=== PATIENT | female | born 1980 | race Caucasian/White ===

== ENCOUNTER 2018-01-26 00:49 | Inpatient (IN) | payer BC ==
[2018-01-26] MEDS ORDERED: Sodium Chloride 0.9% 10 ML Syringe FLUSH PRN (01:57)
[2018-01-26] MEDS ORDERED: Tranexamic Acid 1,000 MG in Sodium Chloride 0.9% 100 ML IV PRN (01:57)
[2018-01-26] MEDS ORDERED: Carboprost Tromethamine 250 MCG/1 ML Amp IM PRN (01:57)
[2018-01-26] MEDS ORDERED: Nalbuphine 10 MG/1 ML Vial IVPUSH PRN ×2 (01:57→14:53)
[2018-01-26] MEDS ORDERED: Misoprostol 200 MCG Tab PO PRN (01:57)
[2018-01-26] MEDS ORDERED: Sodium Chloride 0.9% 2.5 ML Syringe FLUSH PRN (01:57)
[2018-01-26] MEDS ORDERED: Water For Irrigation,Sterile 1,000 ML Container IRR PRN (01:57)
[2018-01-26] MEDS ORDERED: Butorphanol 1 MG/ML SDV IVPUSH PRN (01:57)
[2018-01-26] MEDS ORDERED: Lidocaine 1% 50 ML MDV INJECT PRN (01:57)
[2018-01-26] MEDS ORDERED: Methylergonovine 0.2 MG/1 ML Amp IM PRN (01:57)
[2018-01-26] MEDS ORDERED: Oxytocin/0.9 % Sodium Chloride 30 UNIT/500 ML BAG IV SCH ×2 (02:00→09:30)
[2018-01-26] MEDS ORDERED: Ampicillin 2 GM in Sodium Chloride 0.9% 100 ML IV ONE (02:00)
--- NOTE | 2018-01-26 02:55 | PCM.LDHP ---
L&D History of Present Illness - General Date of Service: 01/26/18 Admit Problem/Dx: Patient Status Order with Admit Dx/Problem 01/26/18 01:04 Patient Status [ADT] Routine 01/26/18 01:24 Patient Status [ADT] Routine Admission Diagnosis/Problem Admission Diagnosis/Problem - planned Source of Information: Patient History Limitations: Reports: No Limitations - History of Present Illness Improves with: Reports: None Worsens with: Reports: None Associated Symptoms: Reports: N - Related Data Allergies/Adverse Reactions: Allergies Allergy/AdvReac Type Severity Reaction Status Date / Time No Known Allergies Allergy Verified 09/08/15 13:32 H&P Review of Systems - Review of Systems: Review Of Systems: See Below General: Reports: No Symptoms HEENT: Reports: No Symptoms Pulmonary: Reports: No Symptoms Cardiovascular: Reports: No Symptoms Gastrointestinal: Reports: No Symptoms Genitourinary: Reports: No Symptoms Musculoskeletal: Reports: No Symptoms Skin: Reports: No Symptoms Psychiatric: Reports: No Symptoms Neurological: Reports: No Symptoms Hematologic/Lymphatic: Reports: No Symptoms Immunologic: Reports: No Symptoms L&D Exam - Exam Exam: See Below - OB Specific Fundal Height In cm: 37 Contraction Intensity: Moderate to Strong Movement: Active Heart Tones: Present Heart Rate (FHR) Variability: Absent; Amplitude Undetectable Presentation: Vertex - Deng Score Degn Score Cervix Position: Anterior Deng Score Consistency: Soft Deng Score Effacement: >80% Deng Score Dilation: > 5 cm Deng Score Infant's Station: -1 ,0 Deng Score Total: 12 - Patient Data Lab Results Last 24 hrs: Laboratory Results - last 24 hr 01/26/18 Range/Units 02:03 WBC 17.80 H (4.0-11.0) K/uL RBC 4.07 L (4.30-5.90) M/uL Hgb 12.5 (12.0-16.0) g/dL Hct 37.0 (36.0-46.0) % MCV 90.9 (80.0-98.0) fL MCH 30.7 (27.0-32.0) pg MCHC 33.8 (31.0-37.0) g/dL RDW Std Deviation 47.9 (28.0-62.0) fl RDW Coeff of Chris 15 (11.0-15.0) % Plt Count 245 (150-400) K/uL MPV 12.60 H (7.40-12.00) fL Nucleated RBC % 0.0 /100WBC Nucleated RBCs # 0 K/uL Result Diagrams: 01/26/18 02:03 Problem List Initiated/Reviewed/Updated: Yes Orders Last 24hrs: Active Orders 24 hr Category Date Time Status Patient Status [ADT] Routine ADT 01/26/18 01:24 Active Heart Tones [RC] CONTINUOUS Care 01/26/18 01:57 Active Non Stress Test [RC] PER UNIT ROUTINE Care 01/26/18 01:04 Active Non Stress Test [RC] PER UNIT ROUTINE Care 01/26/18 01:57 Active May Shower [RC] ASDIRECTED Care 01/26/18 01:57 Active Notify Provider [RC] PRN Care 01/26/18 01:57 Active Up ad Diamond [RC] ASDIRECTED Care 01/26/18 01:04 Active Up ad Diamond [RC] ASDIRECTED Care 01/26/18 01:57 Active Vaginal Exam [RC] Click to Edit Care 01/26/18 01:04 Active Vaginal Exam [RC] PRN Care 01/26/18 01:57 Active Vital Signs [RC] PER UNIT ROUTINE Care 01/26/18 01:04 Active Vital Signs [RC] PER UNIT ROUTINE Care 01/26/18 01:57 Active OB Ltd 1 or More Fetus [US] Stat Exams 01/26/18 01:56 Taken TYPE AND SCREEN [BBK] Routine Lab 01/26/18 02:03 Received Ampicillin 1 gm Med 01/26/18 06:00 Active Sodium Chloride 0.9% [Normal Saline] 50 ml IV Q4H Butorphanol [Stadol] Med 01/26/18 01:57 Active 1 mg IVPUSH Q1H PRN Carboprost Tromethamine [Hemabate DS] Med 01/26/18 01:57 Active 250 mcg IM ASDIRECTED PRN Lactated Ringers [Ringers, Lactated] 1,000 ml Med 01/26/18 02:00 Active IV ASDIRECTED Lidocaine 1% [Xylocaine 1%] Med 01/26/18 01:57 Active 50 ml INJECT .ONCE PRN Methylergonovine [Methergine] Med 01/26/18 01:57 Active 0.2 mg IM ASDIRECTED PRN Misoprostol [Cytotec] Med 01/26/18 01:57 Active 200 mcg PO .ONCE PRN Nalbuphine [Nubain] Med 01/26/18 01:57 Active 10 mg IVPUSH Q1H PRN Oxytocin/0.9 % Sodium Chloride [Oxytocin 30 Unit/500 ML Med 01/26/18 02:00 Active -NS] 30 unit in 500 ml IV TITRATE Sodium Chloride 0.9% [Saline Flush] Med 01/26/18 01:57 Active 10 ml FLUSH ASDIRECTED PRN Sodium Chloride 0.9% [Saline Flush] Med 01/26/18 01:57 Active 2.5 ml FLUSH ASDIRECTED PRN Tranexamic Acid [Cyklokapron] 1,000 mg Med 01/26/18 01:57 Active Sodium Chloride 0.9% [Normal Saline] 100 ml IV ONETIME Water For Irrigation,Sterile [Sterile Water for Med 01/26/18 01:57 Active Irrigation] 1,000 ml IRR ASDIRECTED PRN Scalp Electrode [WOMSER] Per Unit Routine Oth 01/26/18 01:57 Ordered Peripheral IV Insertion Adult [OM.PC] Routine Oth 01/26/18 01:57 Ordered Resuscitation Status Routine Resus Stat 01/26/18 01:04 Ordered Medication Orders Butorphanol Tartrate (Stadol) 1 mg IVPUSH Q1H PRN PRN Reason: Pain Carboprost Tromethamine (Hemabate Ds) 250 mcg IM ASDIRECTED PRN PRN Reason: Post Hemorrhage Tranexamic Acid 1,000 mg/ (Sodium Chloride) 110 mls @ 660 mls/hr IV ONETIME PRN PRN Reason: Bleeding Lactated Ringer's (Ringers, Lactated) 1,000 mls @ 150 mls/hr IV ASDIRECTED SAUL Oxytocin/Sodium Chloride (Oxytocin 30 Unit/500 Ml-Ns) 30 unit in 500 mls @ 999 mls/hr IV TITRATE SAUL Ampicillin Sodium 1 gm/ Sodium (Chloride) 50 mls @ 100 mls/hr IV Q4H SAUL Lidocaine HCl (Xylocaine 1%) 50 ml INJECT .ONCE PRN PRN Reason: Laceration repair Methylergonovine Maleate (Methergine) 0.2 mg IM ASDIRECTED PRN PRN Reason: Post Hemorrhage Misoprostol (Cytotec) 200 mcg PO .ONCE PRN PRN Reason: Post Hemorrhage Nalbuphine HCl (Nubain) 10 mg IVPUSH Q1H PRN PRN Reason: Pain (severe 7-10) Sodium Chloride (Saline Flush) 10 ml FLUSH ASDIRECTED PRN PRN Reason: Keep Vein Open Sodium Chloride (Saline Flush) 2.5 ml FLUSH ASDIRECTED PRN PRN Reason: Keep Vein Open Sterile Water (Sterile Water For Irrigation) 1,000 ml IRR ASDIRECTED PRN PRN Reason: delivery Assessment/Plan Comment:: 37 year old P0000 have no care in this fallowed by " display designer" been in Labor for 36 hour Srom about 22 hours CX. 7/v/-2 FAR is category 1 but she have tachycardia. Plan to admit tothe L&D start on antibiotic, Epidural may need to start on Pitocin.
[2018-01-26] MEDS ORDERED: fentaNYL 100 MCG/2 ML SDV ONE (02:56)
[2018-01-26] MEDS: Lactated Ringers 1,000 ML IV SCH ×3 (02:57→06:50)
[2018-01-26] MEDS ORDERED: Ropivacaine 0.2% 2 MG/ML 20 ML SDV ONE (02:57)
--- NOTE | 2018-01-26 03:11 | PCM.PREANE ---
Preanesthetic Assessment - Procedure Proposed Procedure: labor epidural - Anesthesia/Transfusion/Family Hx Anesthesia History: Prior Anesthesia Without Reaction (wisdom teeth, laparoscopy for endometriosis) Family History of Anesthesia Reaction: No Transfusion History: No Prior Transfusion(s) - Review of Systems General: No Symptoms Pulmonary: No Symptoms Cardiovascular: No Symptoms Gastrointestinal: No Symptoms Neurological: No Symptoms Other: Reports: None - Physical Assessment NPO Status Date: 01/26/18 NPO Status Time: 03:10 (cl. liq) ASA Class: 2 Mental Status: Alert & Oriented x3 Airway Class: Mallampati = 1 Dentition: Reports: Normal Dentition Thyro-Mental Finger Breadths: 3 Mouth Opening Finger Breadths: 3 ROM/Head Extension: Full Lungs: Clear to Auscultation, Normal Respiratory Effort Cardiovascular: Regular Rate, Regular Rhythm - Lab Values: Laboratory Last Values WBC 17.80 K/uL (4.0-11.0) H 01/26/18 02:03 RBC 4.07 M/uL (4.30-5.90) L 01/26/18 02:03 Hgb 12.5 g/dL (12.0-16.0) 01/26/18 02:03 Hct 37.0 % (36.0-46.0) 01/26/18 02:03 MCV 90.9 fL (80.0-98.0) 01/26/18 02:03 MCH 30.7 pg (27.0-32.0) 01/26/18 02:03 MCHC 33.8 g/dL (31.0-37.0) 01/26/18 02:03 RDW Std Deviation 47.9 fl (28.0-62.0) 01/26/18 02:03 RDW Coeff of Chris 15 % (11.0-15.0) 01/26/18 02:03 Plt Count 245 K/uL (150-400) 01/26/18 02:03 MPV 12.60 fL (7.40-12.00) H 01/26/18 02:03 Nucleated RBC % 0.0 /100WBC 01/26/18 02:03 Nucleated RBCs # 0 K/uL 01/26/18 02:03 - Allergies Allergies/Adverse Reactions: Allergies Allergy/AdvReac Type Severity Reaction Status Date / Time No Known Allergies Allergy Verified 09/08/15 13:32 - Blood Blood Available: Yes Product(s) Available: PRBC - Acknowledgements Anesthesia Type Planned: Epidural Pt an Appropriate Candidate for the Planned Anesthesia: Yes Alternatives and Risks of Anesthesia Discussed w Pt/Guardian: Yes Pt/Guardian Understands and Agrees with Anesthesia Plan: Yes PreAnesthesia Questionnaire - CURRENT (IN HOUSE) MEDS Current Meds: Current Medications Butorphanol Tartrate (Stadol) 1 mg IVPUSH Q1H PRN PRN Reason: Pain Carboprost Tromethamine (Hemabate Ds) 250 mcg IM ASDIRECTED PRN PRN Reason: Post Hemorrhage Tranexamic Acid 1,000 mg/ (Sodium Chloride) 110 mls @ 660 mls/hr IV ONETIME PRN PRN Reason: Bleeding Lactated Ringer's (Ringers, Lactated) 1,000 mls @ 150 mls/hr IV ASDIRECTED SAUL Last Admin: 01/26/18 02:57 Dose: 150 mls/hr Oxytocin/Sodium Chloride (Oxytocin 30 Unit/500 Ml-Ns) 30 unit in 500 mls @ 999 mls/hr IV TITRATE SAUL Ampicillin Sodium 1 gm/ Sodium (Chloride) 50 mls @ 100 mls/hr IV Q4H SAUL Lidocaine HCl (Xylocaine 1%) 50 ml INJECT .ONCE PRN PRN Reason: Laceration repair Methylergonovine Maleate (Methergine) 0.2 mg IM ASDIRECTED PRN PRN Reason: Post Hemorrhage Misoprostol (Cytotec) 200 mcg PO .ONCE PRN PRN Reason: Post Hemorrhage Nalbuphine HCl (Nubain) 10 mg IVPUSH Q1H PRN PRN Reason: Pain (severe 7-10) Sodium Chloride (Saline Flush) 10 ml FLUSH ASDIRECTED PRN PRN Reason: Keep Vein Open Sodium Chloride (Saline Flush) 2.5 ml FLUSH ASDIRECTED PRN PRN Reason: Keep Vein Open Sterile Water (Sterile Water For Irrigation) 1,000 ml IRR ASDIRECTED PRN PRN Reason: delivery Discontinued Medications Fentanyl (Sublimaze) Confirm Administered Dose 100 mcg .ROUTE .STK-MED ONE Stop: 01/26/18 02:57 Ampicillin Sodium 2 gm/ Sodium (Chloride) 100 mls @ 200 mls/hr IV ONETIME ONE Stop: 04/05/18 02:29 Last Admin: 01/26/18 02:58 Dose: 200 mls/hr Fentanyl/Bupivacaine HCl (Mxtppbsu-Acyqp-Lx 2 Mcg/Ml-0.125%) Confirm Administered Dose 100 mls @ as directed EP .STK-MED ONE Stop: 01/26/18 02:57 Ropivacaine (Naropin 0.2%) Confirm Administered Dose 20 ml .ROUTE .STK-MED ONE Stop: 01/26/18 02:58
--- NOTE | 2018-01-26 04:07 | PCM.PRNOTE ---
- Free Text/Narrative Note: asked to place epidural for walk in patient with no recent care, dilated to 7 cm. discussed epidural placement and risks with patient including bleeding, infection, nerve pain, nerve damage and unsuccessful epidural placement. Patient agrees to proceed. sitting up, sterile betadine prep/drape. 1 % lidocaine SQ at L4. #17 touhy advanced with MICHELLE saline. No heme. no paresthesia. catheter easily placed to 15 cm at skin, [id number] cm into space. test dose 3 ml lidocaine with epinepherine 1:200,000. negative reaction. aspiration of catheter with clear fluid, 0.5 ml. bolus dose of 7 ml 0.2% ropivicaine and fentanyl 100 mcg over 10 min. pain now 5/10 from 8/10 and described as mostly pressure sensation. PCEA started at 8ml/hr of 0.125% bupivicaine with fentanyl 100 mcg with bolus option of 5 ml/10 min. hourly rate 32 ml
[2018-01-26] MEDS: Ampicillin 1 GM in Sodium Chloride 0.9% 50 ML IV SCH ×2 (06:50→19:00)
[2018-01-26] MEDS ORDERED: Terbutaline 1 MG/ML SDV SUBCUT PRN (09:16)
--- NOTE | 2018-01-26 10:29 | US ---
EXAM DATE: 01/26/18 PATIENT'S AGE: 37 Patient: GRACE BAIG Facility: [place], [place] Site . Site : [id number] Study: US OB Pelvis [id number]/5/2018 2:40:14 AM Ordering Physician: Ani Berry Final Report: INDICATION: Check presenting portion of fetus, advanced dilatation TECHNIQUE: Limited grayscale and Doppler transabdominal imaging of the pelvis performed COMPARISON: None FINDINGS/ IMPRESSION: The patient is in active labor and the decrease indication part is difficult to visualized. Limited imaging of the uterus demonstrates a heart rate of 136 beats per minute. The head appears vertex and slightly to the left. Dictated by Michelle Gant MD @ Jan 26 2018 2:43AM (Electronic Signature) Report Signed by Proxy. JAMES
[2018-01-26] MEDS ORDERED: Bupivacaine 0.5% 10 ML SDV ONE (13:01)
[2018-01-26] MEDS ORDERED: Oxytocin 10 Units/1 ML SDV ONE (13:19)
[2018-01-26] MEDS ORDERED: Ondansetron 4 MG/2 ML SDV ONE (13:19)
[2018-01-26] MEDS ORDERED: Morphine PF 1 MG/ML Amp ONE (13:53)
[2018-01-26] MEDS ORDERED: Octyl 2-Cyanoacrylate 1 Tube ONE (13:53)
[2018-01-26] MEDS ORDERED: Bisacodyl 10 MG Supp RECTAL PRN (13:58)
[2018-01-26] MEDS ORDERED: Acetaminophen/oxyCODONE 325-5 MG Tab PO PRN (13:58)
[2018-01-26] MEDS ORDERED: diphenhydrAMINE 50 MG/ML SDV IVPUSH PRN ×2 (13:58→14:53)
[2018-01-26] MEDS ORDERED: Lanolin 100% Cream 7 GM Tube TOP PRN (13:58)
[2018-01-26] MEDS ORDERED: Ondansetron 4 MG/2 ML SDV IV PRN (13:58)
[2018-01-26] MEDS ORDERED: Lactated Ringers 1,000 ML IV SCH (14:00)
--- NOTE | 2018-01-26 14:01 | PCM.OPNOTE ---
- General Post-Op/Procedure Note Date of Surgery/Procedure: 01/26/18 Operative Procedure(s): Primary C/Section. Post-Op Diagnosis: Same Anesthesia Technique: Epidural Primary Surgeon: Jamal Law Bank Boss: Viji Meier EBL in mLs: 700 Complications: None Condition: Good
[2018-01-26] MEDS: Ketorolac 30 MG/ML SDV IVPUSH SCH ×2 (14:30→20:09)
[2018-01-26] MEDS ORDERED: Naloxone 0.4 MG/ML Syringe IVPUSH PRN (14:53)
--- NOTE | 2018-01-26 14:53 | PCM.POSTAN ---
POST ANESTHESIA ASSESSMENT - MENTAL STATUS Mental Status: Alert, Oriented - RESPIRATORY Respiratory Status: Respiratory Rate WNL, Airway Patent, O2 Saturation Stable - CARDIOVASCULAR CV Status: Pulse Rate WNL, Blood Pressure Stable - GASTROINTESTINAL GI Status: No Symptoms - POST OP HYDRATION Hydration Status: Adequate & Stable
--- NOTE | 2018-01-26 18:12 | OR ---
SURGEON: Jamal Law MD DATE OF PROCEDURE: PREOPERATIVE DIAGNOSES: Intrauterine at term, sign of prolonged labor, failure to descend. POSTOPERATIVE DIAGNOSES: Intrauterine at term, sign of prolonged labor, failure to descend. OPERATION PERFORMED: Primary low-transverse section. X RAY NURSE: LUANA Lopez ANESTHESIA: Epidural, Abdullahi Hawkins and Willam Clinton M.D. ESTIMATED BLOOD LOSS: 700 mL. COMPLICATIONS: None. TRANSPORTATION DEPARTMENT SUPERVISOR: Niurka Jones M.D. INDICATION FOR SURGERY: This patient is a 37-year-old, she is primigravida, she is an assigned. She presented to Labor and Delivery in active labor and she was dilated 7 cm vertex at the time of her presentation. The patient stated that she is being followed by playground attendant and she be in labor for 36 hours. She had been ruptured for 20 hours. The patient started immediately on antibiotic and placed on the monitors and she had epidural anesthesia for labor analgesia. The patient have Pitocin augmentation and she have adequate contraction. She progressed slowly. She became complete vertex and -3. She attempted pushing, but the baby was asynclitic and was not descending appropriately, and then the patient has been in labor for over 48 hours and she had been ruptured over 30 minutes. The decision was made to do a primary low-transverse section and her consented for the procedure. PROCEDURE IN DETAIL: The patient was brought to the OR, properly identified and after adequate level of epidural anesthesia, with a John catheter in the bladder and time-out taken and the patient was identified. The patient was prepped and draped in sterile fashion as usual. Low transverse Pfannenstiel skin incision was done. Ad's fascia and rectus fascia were opened in direction of the incision. The 2 recti muscles were and peritoneal cavity was entered. Bladder flap was raised in the usual manner pushing the bladder away from the lower uterine segment. Low transverse uterine incision was done, extended manually, and fetus was in the vertex position, delivered without any problem, handed to the nurse resuscitator and the ride operator, who was present at the time of the delivery. The score reported to be 8 and 9. The weight is not available. The placenta delivered spontaneous, complete, and intact. Then, the repair of the lower uterine segment was done with 2-0 Vicryl continuous interlocking in 2 layers. Reperitonealization done with 3-0 Vicryl continuous and then the peritoneal cavity evacuated completely from all blood and blood clot and closed with 3-0 Vicryl continuous. The rectus fascia was closed with #1 PDS double strand continuous. The Ad's fascia with 3-0 Vicryl continuous and the skin with 3-0 Vicryl on a Jean needle in a subcuticular fashion and Dermabond. Instrument sponge count was correct. The patient tolerated the procedure well, went to recovery room in stable general condition. KAHLIL KILGORE /[id number]
[2018-01-26] MEDS: Docusate Sodium 100 MG Cap PO SCH (20:10)
[2018-01-27] MEDS: Ketorolac 30 MG/ML SDV IVPUSH SCH ×3 (02:24→14:53)
--- NOTE | 2018-01-27 07:40 | PCM48HPAN ---
Post Anesthesia Note - EVALUATION WITHIN 48HRS OF ANESTHETIC Vital Signs in Normal Range: Yes Patient Participated in Evaluation: Yes Respiratory Function Stable: Yes Airway Patent: Yes Cardiovascular Function Stable: Yes Hydration Status Stable: Yes Pain Control Satisfactory: Yes Nausea and Vomiting Control Satisfactory: Yes Mental Status Recovered: Yes Resp Rate: 20
--- NOTE | 2018-01-27 09:05 | PCM.SURGPN ---
- General Info Date of Service: 01/27/18 POD#: 1 Functional Status: Reports: Pain Controlled - Review of Systems General: Reports: No Symptoms HEENT: Reports: No Symptoms Pulmonary: Reports: No Symptoms Cardiovascular: Reports: No Symptoms Gastrointestinal: Reports: No Symptoms Genitourinary: Reports: No Symptoms Musculoskeletal: Reports: No Symptoms Skin: Reports: No Symptoms Neurological: Reports: No Symptoms Psychiatric: Reports: No Symptoms - Patient Data Vitals - Most Recent: Last Vital Signs Temp 36.2 C 01/27/18 05:00 Pulse 77 01/27/18 06:00 Resp 20 01/27/18 07:40 BP 131/61 01/27/18 05:00 Pulse Ox 96 01/27/18 06:00 Weight - Most Recent: 86.183 kg I&O - Last 24 Hours: Intake & Output 01/26/18 01/27/18 01/27/18 22:59 06:59 14:59 Intake Total 1850 3000 Output Total 950 1200 Balance 900 1800 Lab Results Last 24 Hrs: Laboratory Results - last 24 hr 01/27/18 Range/Units 05:33 Hgb 9.7 L (12.0-16.0) g/dL Hct 29.3 L (36.0-46.0) % Med Orders - Current: Current Medications Bisacodyl (Dulcolax) 10 mg RECTAL .ONCE PRN PRN Reason: Constipation Butorphanol Tartrate (Stadol) 1 mg IVPUSH Q1H PRN PRN Reason: Pain Carboprost Tromethamine (Hemabate Ds) 250 mcg IM ASDIRECTED PRN PRN Reason: Post Hemorrhage Diphenhydramine HCl (Benadryl) 25 mg IVPUSH Q6H PRN PRN Reason: Itching or Nausea Diphenhydramine HCl (Benadryl) 25 mg IVPUSH Q4H PRN PRN Reason: Itching Stop: 01/27/18 14:53 Docusate Sodium (Colace) 100 mg PO BID [facility] Last Admin: 01/26/18 20:10 Dose: 100 mg Emollient Ointment (Lansinoh Hpa) 0 gm TOP ASDIRECTED PRN PRN Reason: Sore Nipples Tranexamic Acid 1,000 mg/ (Sodium Chloride) 110 mls @ 660 mls/hr IV ONETIME PRN PRN Reason: Bleeding Lactated Ringer's (Ringers, Lactated) 1,000 mls @ 150 mls/hr IV ASDIRECTED [facility] Last Admin: 01/26/18 06:50 Dose: 150 mls/hr Oxytocin/Sodium Chloride (Oxytocin 30 Unit/500 Ml-Ns) 30 unit in 500 mls @ 999 mls/hr IV TITRATE [facility] Ampicillin Sodium 1 gm/ Sodium (Chloride) 50 mls @ 100 mls/hr IV Q4H [facility] Last Admin: 01/26/18 19:00 Dose: Not Given Oxytocin/Sodium Chloride (Oxytocin 30 Unit/500 Ml-Ns) 30 unit in 500 mls @ 2 mls/hr IV TITRATE [facility]; Protocol Last Titration: 01/26/18 11:37 Dose: 12 munits/min, 12 mls/hr Lactated Ringer's (Ringers, Lactated) 1,000 mls @ 125 mls/hr IV ASDIRECTED [facility] Last Admin: 01/26/18 17:01 Dose: 125 mls/hr Ibuprofen (Motrin) 800 mg PO Q8H PRN PRN Reason: mild pain or fever Ketorolac Tromethamine (Toradol) 30 mg IVPUSH Q6H [facility] Stop: 01/27/18 14:01 Last Admin: 01/27/18 02:24 Dose: 30 mg Lidocaine HCl (Xylocaine 1%) 50 ml INJECT .ONCE PRN PRN Reason: Laceration repair Methylergonovine Maleate (Methergine) 0.2 mg IM ASDIRECTED PRN PRN Reason: Post Hemorrhage Misoprostol (Cytotec) 200 mcg PO .ONCE PRN PRN Reason: Post Hemorrhage Nalbuphine HCl (Nubain) 10 mg IVPUSH Q1H PRN PRN Reason: Pain (severe 7-10) Nalbuphine HCl (Nubain) 5 mg IVPUSH Q3H PRN PRN Reason: Pruritis Stop: 01/27/18 14:53 Naloxone HCl (Narcan) 0.1 mg IVPUSH ONETIME PRN PRN Reason: Respiratory Depression Stop: 01/27/18 14:53 Ondansetron HCl (Zofran) 4 mg IV Q4H PRN PRN Reason: Nausea/Vomiting Oxycodone/Acetaminophen (Percocet 325-5 Mg) 1 tab PO Q4H PRN PRN Reason: Pain (moderate 4-6) Oxycodone/Acetaminophen (Percocet 325-5 Mg) 2 tab PO Q4H PRN PRN Reason: Pain (moderate 4-6) Sodium Chloride (Saline Flush) 10 ml FLUSH ASDIRECTED PRN PRN Reason: Keep Vein Open Sodium Chloride (Saline Flush) 2.5 ml FLUSH ASDIRECTED PRN PRN Reason: Keep Vein Open Sterile Water (Sterile Water For Irrigation) 1,000 ml IRR ASDIRECTED PRN PRN Reason: delivery Terbutaline Sulfate (Brethine) 0.25 mg SUBCUT ASDIRECTED PRN PRN Reason: Tacysystole Discontinued Medications Bupivacaine HCl (Sensorcaine-Mpf 0.5%) Confirm Administered Dose 20 ml .ROUTE .STK-MED ONE Stop: 01/26/18 13:02 Last Admin: 01/26/18 19:01 Dose: Not Given Fentanyl (Sublimaze) Confirm Administered Dose 100 mcg .ROUTE .STK-MED ONE Stop: 01/26/18 02:57 Last Admin: 01/26/18 19:00 Dose: Not Given Ampicillin Sodium 2 gm/ Sodium (Chloride) 100 mls @ 200 mls/hr IV ONETIME ONE Stop: 01/26/18 02:29 Last Admin: 01/26/18 02:58 Dose: 200 mls/hr Fentanyl/Bupivacaine HCl (Olbqqrlg-Icjbb-Jx 2 Mcg/Ml-0.125%) Confirm Administered Dose 100 mls @ as directed EP .STK-MED ONE Stop: 01/26/18 02:57 Last Admin: 01/26/18 19:00 Dose: Not Given Morphine Sulfate (Duramorph Pf) Confirm Administered Dose 1 mg .ROUTE .STK-MED ONE Stop: 01/26/18 13:54 Octyl Cyanoacrylate (Dermabond Advance) Confirm Administered Dose 1 applic .ROUTE .STK-MED ONE Stop: 01/26/18 13:54 Ondansetron HCl (Zofran) Confirm Administered Dose 4 mg .ROUTE .STK-MED ONE Stop: 01/26/18 13:20 Oxytocin (Pitocin) Confirm Administered Dose 20 unit .ROUTE .STK-MED ONE Stop: 01/26/18 13:20 Ropivacaine (Naropin 0.2%) Confirm Administered Dose 20 ml .ROUTE .STK-MED ONE Stop: 01/26/18 02:58 Last Admin: 01/26/18 19:00 Dose: Not Given - Exam Wound/Incisions: Healing Well General: Alert, Oriented HEENT: Pupils Equal Neck: Supple Lungs: Clear to Auscultation, Normal Respiratory Effort Cardiovascular: Regular Rate, Regular Rhythm GI/Abdominal Exam: Normal Bowel Sounds, Soft, Non-Tender, No Organomegaly, No Distention, No Abnormal Bruit, No Mass, Pelvis Stable Extremities: Normal Inspection, Normal Range of Motion, Non-Tender, No Pedal Edema, Normal Capillary Refill Skin: Warm, Dry, Intact Neurological: No New Focal Deficit Psy/Mental Status: Alert, Normal Affect, Normal Mood - Problem List Review Problem List Initiated/Reviewed/Updated: Yes - My Orders Last 24 Hours: Active Orders 24 hr Category Date Time Status Patient Status [ADT] Routine ADT 01/26/18 13:59 Active Ambulate [RC] PER UNIT ROUTINE Care 01/26/18 13:59 Active Bradycardia-Neuroaxis [employer] [RC] ROUTINE Care 01/26/18 14:53 Active Communication Order [RC] PER UNIT ROUTINE Care 01/26/18 13:59 Active Communication Order [RC] PER UNIT ROUTINE Care 01/26/18 13:59 Active Communication Order [RC] Per Unit Routine Care 01/26/18 13:59 Active Hypertension-Neuroaxis [employer] [RC] ROUTINE Care 01/26/18 14:53 Active Hypotension-Neuroaxis [employer] [RC] ROUTINE Care 01/26/18 14:53 Active Oxygen Therapy [RC] PER UNIT ROUTINE Care 01/26/18 14:53 Active RT Incentive Spirometry [RC] Q2HWA Care 01/26/18 13:59 Active Vital Signs [RC] Q1H Care 01/26/18 14:53 Active Acetaminophen/oxyCODONE [Percocet 325-5 MG] Med 01/26/18 13:58 Active 1 tab PO Q4H PRN Acetaminophen/oxyCODONE [Percocet 325-5 MG] Med 01/26/18 13:58 Active 2 tab PO Q4H PRN Bisacodyl [Dulcolax] Med 01/26/18 13:58 Active 10 mg RECTAL .ONCE PRN Docusate Sodium [Colace] Med 01/26/18 21:00 Active 100 mg PO BID Ibuprofen [Motrin] Med 01/26/18 13:58 Active 800 mg PO Q8H PRN Ketorolac [Toradol] Med 01/26/18 14:00 Active 30 mg IVPUSH Q6H Lactated Ringers [Ringers, Lactated] 1,000 ml Med 01/26/18 14:00 Active IV ASDIRECTED Lanolin [Lansinoh HPA] Med 01/26/18 13:58 Active See Dose Instructions TOP ASDIRECTED PRN Nalbuphine [Nubain] Med 01/26/18 14:53 Active 5 mg IVPUSH Q3H PRN Naloxone [Narcan] Med 01/26/18 14:53 Active 0.1 mg IVPUSH ONETIME PRN Ondansetron [Zofran] Med 01/26/18 13:58 Active 4 mg IV Q4H PRN Oxytocin/0.9 % Sodium Chloride [Oxytocin 30 Unit/500 ML Med 01/26/18 09:30 Active -NS] 30 unit in 500 ml IV TITRATE Terbutaline [Brethine] Med 01/26/18 09:16 Active 0.25 mg SUBCUT ASDIRECTED PRN diphenhydrAMINE [Benadryl] Med 01/26/18 14:53 Active 25 mg IVPUSH Q4H PRN diphenhydrAMINE [Benadryl] Med 01/26/18 13:58 Active 25 mg IVPUSH Q6H PRN AN Neuroaxis [employer] Precaution Reflex [OM.PC] PER Ot 01/26/18 15:00 Ordered UNIT ROUTINE AN Neuroaxis [employer] Precaution Reflex [OM.PC] PER Oth 01/27/18 15:00 Ordered UNIT ROUTINE Assess Lochia [WOMSER] Per Unit Routine Ot 01/26/18 13:59 Ordered Assess Uterine Involution [WOMSER] Per Unit Routine Oth 01/26/18 13:59 Ordered Breast Pump [WOMSER] Per Unit Routine Oth 01/26/18 13:59 Ordered Medication Administration Instruction [OM.PC] Q3H Oth 01/26/18 09:30 Ordered Peripheral IV Discontinue [OM.PC] Routine Oth 01/26/18 13:59 Ordered Sequential Compression Device [OM.PC] Per Unit Routine Oth 01/26/18 13:59 Ordered Medication Orders Bisacodyl (Dulcolax) 10 mg RECTAL .ONCE PRN PRN Reason: Constipation Butorphanol Tartrate (Stadol) 1 mg IVPUSH Q1H PRN PRN Reason: Pain Carboprost Tromethamine (Hemabate Ds) 250 mcg IM ASDIRECTED PRN PRN Reason: Post Hemorrhage Diphenhydramine HCl (Benadryl) 25 mg IVPUSH Q6H PRN PRN Reason: Itching or Nausea Diphenhydramine HCl (Benadryl) 25 mg IVPUSH Q4H PRN PRN Reason: Itching Stop: 01/27/18 14:53 Docusate Sodium (Colace) 100 mg PO BID [facility] Last Admin: 01/26/18 20:10 Dose: 100 mg Emollient Ointment (Lansinoh Hpa) 0 gm TOP ASDIRECTED PRN PRN Reason: Sore Nipples Tranexamic Acid 1,000 mg/ (Sodium Chloride) 110 mls @ 660 mls/hr IV ONETIME PRN PRN Reason: Bleeding Lactated Ringer's (Ringers, Lactated) 1,000 mls @ 150 mls/hr IV ASDIRECTED [facility] Last Admin: 01/26/18 06:50 Dose: 150 mls/hr Infusion: 01/26/18 06:50 Dose: 150 mls/hr Admin: 01/26/18 03:49 Dose: 150 mls/hr Infusion: 01/26/18 03:49 Dose: 150 mls/hr Admin: 01/26/18 02:57 Dose: 150 mls/hr Oxytocin/Sodium Chloride (Oxytocin 30 Unit/500 Ml-Ns) 30 unit in 500 mls @ 999 mls/hr IV TITRATE [facility] Ampicillin Sodium 1 gm/ Sodium (Chloride) 50 mls @ 100 mls/hr IV Q4H [facility] Last Admin: 01/26/18 19:00 Dose: Not Given Admin: 01/26/18 19:00 Dose: Not Given Admin: 01/26/18 19:00 Dose: Not Given Admin: 01/26/18 06:50 Dose: 100 mls/hr Oxytocin/Sodium Chloride (Oxytocin 30 Unit/500 Ml-Ns) 30 unit in 500 mls @ 2 mls/hr IV TITRATE [facility]; Protocol Last Titration: 01/26/18 11:37 Dose: 12 munits/min, 12 mls/hr Titration: 01/26/18 11:15 Dose: 10 munits/min, 10 mls/hr Titration: 01/26/18 10:55 Dose: 8 munits/min, 8 mls/hr Titration: 01/26/18 10:30 Dose: 6 munits/min, 6 mls/hr Titration: 01/26/18 10:05 Dose: 4 munits/min, 4 mls/hr Admin: 01/26/18 09:36 Dose: 2 munits/min, 2 mls/hr Lactated Ringer's (Ringers, Lactated) 1,000 mls @ 125 mls/hr IV ASDIRECTED [facility] Last Admin: 01/26/18 17:01 Dose: 125 mls/hr Ibuprofen (Motrin) 800 mg PO Q8H PRN PRN Reason: mild pain or fever Ketorolac Tromethamine (Toradol) 30 mg IVPUSH Q6H [facility] Stop: 01/27/18 14:01 Last Admin: 01/27/18 02:24 Dose: 30 mg Admin: 01/26/18 20:09 Dose: 30 mg Admin: 01/26/18 14:30 Dose: 30 mg Lidocaine HCl (Xylocaine 1%) 50 ml INJECT .ONCE PRN PRN Reason: Laceration repair Methylergonovine Maleate (Methergine) 0.2 mg IM ASDIRECTED PRN PRN Reason: Post Hemorrhage Misoprostol (Cytotec) 200 mcg PO .ONCE PRN PRN Reason: Post Hemorrhage Nalbuphine HCl (Nubain) 10 mg IVPUSH Q1H PRN PRN Reason: Pain (severe 7-10) Nalbuphine HCl (Nubain) 5 mg IVPUSH Q3H PRN PRN Reason: Pruritis Stop: 01/27/18 14:53 Naloxone HCl (Narcan) 0.1 mg IVPUSH ONETIME PRN PRN Reason: Respiratory Depression Stop: 01/27/18 14:53 Ondansetron HCl (Zofran) 4 mg IV Q4H PRN PRN Reason: Nausea/Vomiting Oxycodone/Acetaminophen (Percocet 325-5 Mg) 1 tab PO Q4H PRN PRN Reason: Pain (moderate 4-6) Oxycodone/Acetaminophen (Percocet 325-5 Mg) 2 tab PO Q4H PRN PRN Reason: Pain (moderate 4-6) Sodium Chloride (Saline Flush) 10 ml FLUSH ASDIRECTED PRN PRN Reason: Keep Vein Open Sodium Chloride (Saline Flush) 2.5 ml FLUSH ASDIRECTED PRN PRN Reason: Keep Vein Open Sterile Water (Sterile Water For Irrigation) 1,000 ml IRR ASDIRECTED PRN PRN Reason: delivery Terbutaline Sulfate (Brethine) 0.25 mg SUBCUT ASDIRECTED PRN PRN Reason: Tacysystole - Assessment Assessment (Free Text/Narrative):: Status post section postoperative day #1 patient doing well under E the [facility] catheter is DC'd on regular diet voiding without any problem most likely she would be discharge in a.m.
[2018-01-27] MEDS: Docusate Sodium 100 MG Cap PO SCH ×2 (09:07→21:12)
[2018-01-27] MEDS: Ibuprofen 800 MG Tab PO PRN (21:12)
[2018-01-28] MEDS: Acetaminophen/oxyCODONE 325-5 MG Tab PO PRN ×2 (04:45→11:17)
[2018-01-28 07:37] VITALS: BP 146/75
[2018-01-28] MEDS: Ibuprofen 800 MG Tab PO PRN (07:49)
--- NOTE | 2018-01-28 08:57 | PCM.DCSUM1 ---
Discharge Summary - Hospital Course Free Text/Narrative:: Discharge home with son. Follow up in 10 days for incision check and then at 6 weeks post delivery. Come sooner if needed. - Discharge Data Discharge Date: 01/28/18 Discharge Disposition: Home, Self-Care 01 Condition: Good - Patient Summary/Data Operative Procedure(s) Performed: Primary C/Section. - Patient Instructions Diet: Usual Diet as Tolerated Activity: As Tolerated, No Strenuous Activities, Rest and Relax Today Driving: May Drive Today (if not taking the pain medication) Showering/Bathing: May Shower Wound/Incision Care: Keep Operative Site/Wound Site Clean and Dry Notify Provider of: Fever, Increased Pain, Swelling and Redness, Nausea and/or Vomiting - Discharge Plan Patient Handouts: Delivery, Care After Referrals: [facility] [Outside] Jamal Law MD [Physician] - (2 week- February 01 @ 2:00pm w/ Dr. Law week- March 08 @ 10:45am w/ Dr. Law ) - General Info Date of Service: 01/28/18 Admission Dx/Problem (Free Text: Patient Status Order with Admit Dx/Problem 01/26/18 01:04 Patient Status [ADT] Routine 01/26/18 01:24 Patient Status [ADT] Routine Admission Diagnosis/Problem Admission Diagnosis/Problem - planned Functional Status: Reports: Pain Controlled, Tolerating Diet, Ambulating, Urinating - Review of Systems General: Reports: No Symptoms HEENT: Reports: No Symptoms Pulmonary: Reports: No Symptoms Cardiovascular: Reports: No Symptoms Gastrointestinal: Reports: No Symptoms Genitourinary: Reports: No Symptoms Musculoskeletal: Reports: No Symptoms Skin: Reports: No Symptoms Neurological: Reports: No Symptoms Psychiatric: Reports: No Symptoms - Patient Data Vitals - Most Recent: Last Vital Signs Temp 36.7 C 01/28/18 07:36 Pulse 75 01/28/18 07:36 Resp 15 01/28/18 07:36 BP 146/75 H 01/28/18 07:36 Pulse Ox 97 01/28/18 07:36 Weight - Most Recent: 86.183 kg Med Orders - Current: Current Medications Bisacodyl (Dulcolax) 10 mg RECTAL .ONCE PRN PRN Reason: Constipation Butorphanol Tartrate (Stadol) 1 mg IVPUSH Q1H PRN PRN Reason: Pain Carboprost Tromethamine (Hemabate Ds) 250 mcg IM ASDIRECTED PRN PRN Reason: Post Hemorrhage Diphenhydramine HCl (Benadryl) 25 mg IVPUSH Q6H PRN PRN Reason: Itching or Nausea Docusate Sodium (Colace) 100 mg PO BID [facility] Last Admin: 01/27/18 21:12 Dose: 100 mg Emollient Ointment (Lansinoh Hpa) 0 gm TOP ASDIRECTED PRN PRN Reason: Sore Nipples Tranexamic Acid 1,000 mg/ (Sodium Chloride) 110 mls @ 660 mls/hr IV ONETIME PRN PRN Reason: Bleeding Lactated Ringer's (Ringers, Lactated) 1,000 mls @ 150 mls/hr IV ASDIRECTED [facility] Last Admin: 01/26/18 06:50 Dose: 150 mls/hr Oxytocin/Sodium Chloride (Oxytocin 30 Unit/500 Ml-Ns) 30 unit in 500 mls @ 999 mls/hr IV TITRATE [facility] Oxytocin/Sodium Chloride (Oxytocin 30 Unit/500 Ml-Ns) 30 unit in 500 mls @ 2 mls/hr IV TITRATE [facility]; Protocol Last Titration: 01/26/18 11:37 Dose: 12 munits/min, 12 mls/hr Lactated Ringer's (Ringers, Lactated) 1,000 mls @ 125 mls/hr IV ASDIRECTED [facility] Last Admin: 01/26/18 17:01 Dose: 125 mls/hr Ibuprofen (Motrin) 800 mg PO Q8H PRN PRN Reason: mild pain or fever Last Admin: 01/28/18 07:49 Dose: 800 mg Lidocaine HCl (Xylocaine 1%) 50 ml INJECT .ONCE PRN PRN Reason: Laceration repair Methylergonovine Maleate (Methergine) 0.2 mg IM ASDIRECTED PRN PRN Reason: Post Hemorrhage Misoprostol (Cytotec) 200 mcg PO .ONCE PRN PRN Reason: Post Hemorrhage Nalbuphine HCl (Nubain) 10 mg IVPUSH Q1H PRN PRN Reason: Pain (severe 7-10) Ondansetron HCl (Zofran) 4 mg IV Q4H PRN PRN Reason: Nausea/Vomiting Oxycodone/Acetaminophen (Percocet 325-5 Mg) 1 tab PO Q4H PRN PRN Reason: Pain (moderate 4-6) Last Admin: 01/28/18 04:45 Dose: 1 tab Oxycodone/Acetaminophen (Percocet 325-5 Mg) 2 tab PO Q4H PRN PRN Reason: Pain (moderate 4-6) Sodium Chloride (Saline Flush) 10 ml FLUSH ASDIRECTED PRN PRN Reason: Keep Vein Open Sodium Chloride (Saline Flush) 2.5 ml FLUSH ASDIRECTED PRN PRN Reason: Keep Vein Open Sterile Water (Sterile Water For Irrigation) 1,000 ml IRR ASDIRECTED PRN PRN Reason: delivery Terbutaline Sulfate (Brethine) 0.25 mg SUBCUT ASDIRECTED PRN PRN Reason: Tacysystole Discontinued Medications Bupivacaine HCl (Sensorcaine-Mpf 0.5%) Confirm Administered Dose 20 ml .ROUTE .STK-MED ONE Stop: 01/26/18 13:02 Last Admin: 01/26/18 19:01 Dose: Not Given Diphenhydramine HCl (Benadryl) 25 mg IVPUSH Q4H PRN PRN Reason: Itching Stop: 01/27/18 14:53 Fentanyl (Sublimaze) Confirm Administered Dose 100 mcg .ROUTE .STK-MED ONE Stop: 01/26/18 02:57 Last Admin: 01/26/18 19:00 Dose: Not Given Ampicillin Sodium 2 gm/ Sodium (Chloride) 100 mls @ 200 mls/hr IV ONETIME ONE Stop: 01/26/18 02:29 Last Admin: 01/26/18 02:58 Dose: 200 mls/hr Ampicillin Sodium 1 gm/ Sodium (Chloride) 50 mls @ 100 mls/hr IV Q4H [facility] Stop: 01/26/18 13:37 Last Admin: 01/26/18 19:00 Dose: Not Given Fentanyl/Bupivacaine HCl (Ryqjmhmh-Hzbtj-Mb 2 Mcg/Ml-0.125%) Confirm Administered Dose 100 mls @ as directed EP .STK-MED ONE Stop: 01/26/18 02:57 Last Admin: 01/26/18 19:00 Dose: Not Given Ketorolac Tromethamine (Toradol) 30 mg IVPUSH Q6H [facility] Stop: 01/27/18 14:01 Last Admin: 01/27/18 14:53 Dose: 30 mg Morphine Sulfate (Duramorph Pf) Confirm Administered Dose 1 mg .ROUTE .STK-MED ONE Stop: 01/26/18 13:54 Nalbuphine HCl (Nubain) 5 mg IVPUSH Q3H PRN PRN Reason: Pruritis Stop: 01/27/18 14:53 Naloxone HCl (Narcan) 0.1 mg IVPUSH ONETIME PRN PRN Reason: Respiratory Depression Stop: 01/27/18 14:53 Octyl Cyanoacrylate (Dermabond Advance) Confirm Administered Dose 1 applic .ROUTE .STK-MED ONE Stop: 01/26/18 13:54 Ondansetron HCl (Zofran) Confirm Administered Dose 4 mg .ROUTE .STK-MED ONE Stop: 01/26/18 13:20 Oxytocin (Pitocin) Confirm Administered Dose 20 unit .ROUTE .STK-MED ONE Stop: 01/26/18 13:20 Ropivacaine (Naropin 0.2%) Confirm Administered Dose 20 ml .ROUTE .STK-MED ONE Stop: 01/26/18 02:58 Last Admin: 01/26/18 19:00 Dose: Not Given - Exam General: Reports: Alert, Oriented, Cooperative, No Acute Distress Lungs: Reports: Clear to Auscultation, Normal Respiratory Effort Cardiovascular: Reports: Regular Rate, Regular Rhythm, No Murmurs GI/Abdominal Exam: Soft, Non-Tender (Female) Exam: Vaginal Bleeding Rectal (Female) Exam: Deferred Back Exam: Reports: Full Range of Motion Extremities: Normal Inspection, Normal Range of Motion, Non-Tender, No Pedal Edema, Normal Capillary Refill Skin: Reports: Warm, Dry, Intact Wound/Incisions: Reports: Healing Well, No Drainage Neurological: Reports: No New Focal Deficit, Normal Gait, Normal Speech, Normal Tone Psy/Mental Status: Reports: Alert, Normal Affect, Normal Mood
[2018-01-28] MEDS: Docusate Sodium 100 MG Cap PO SCH (11:16)
== END 2018-01-28 11:30 | disposition home or self-care (01) | DRG 540 ==
LOC: MW.OBCHECK 00:49 → MW.OB 00:56 → MW.OBCHECK 01:04 → OBSVTOIN 13:59 → MW.OB 14:08
PROVIDERS: ADMIT Obstetrics & Gynecology; ATTEND Obstetrics & Gynecology
PROC: 10D00Z1 Extraction of Products of Conception, Low, Open Approach (ICD-10-PCS; principal; 2018-01-26)
PROC: 3E033VJ Introduction of Other Hormone into Peripheral Vein, Percutaneous Approach (ICD-10-PCS; 2018-01-26)
DX: O42.02 Full-term premature rupture of membranes, onset of labor within 24 hours of rupture (principal); O63.1 Prolonged second stage (of labor); O32.4XX0 Maternal care for high head at term, not applicable or unspecified; Z3A.40 40 weeks gestation of pregnancy; Z37.0 Single live birth
CPT/HCPCS: 01961; 36415; 59025; 76815; 76815-26; 85014; 85018; 85027; 86850; 86900; 86901; A9270-GY; J0290; J1885; J2274; J2405; J2590; J2795; J3010; J7030; J7050; J7120